=== PATIENT | female | born 1950 | race Caucasian/White ===

== ENCOUNTER 2020-11-10 10:38 | Emergency (ER) | payer MEDICARE, OTHER ==
[~2020-11-10] VITALS: Ht 167.6 cm; Wt 63.5 kg
[2020-11-10] MEDS ORDERED: CLARITIN10 MG PO (10:53)
[2020-11-10] MEDS ORDERED: DULCOLAX STOOL100 M1 PO (10:53)
[2020-11-10] MEDS ORDERED: SENNA8.8 MG/5 M PO (10:53)
[2020-11-10] MEDS ORDERED: PRINIVIL20 M1 PO (10:53)
[2020-11-10] MEDS ORDERED: LIPITOR 20 MG T20 M1 PO (10:53)
[2020-11-10] MEDS ORDERED: FLONASE 0.05%50 MCG NARES (10:54)
[2020-11-10] MEDS ORDERED: CALCIUM500 MG PO (10:54)
[2020-11-10 10:58] LABS: ABSOLUTE BASOPHILS 0.1 thou/uL (0.0-0.2); ABSOLUTE LYMPHOCYTES 1.7 thou/uL (0.8-5.3); ABSOLUTE MONOCYTES 0.6 thou/uL (0.0-1.2); ABSOLUTE NEUTROPHILS 4.9 thou/uL (1.6-8.1); BASOPHILS 0.8 %; EOSINOPHILS 0.5 %; HEMATOCRIT 43.2 % (37.0-47.0); LYMPHOCYTES 23.1 %; MCH 30.1 pg (26.0-34.0); MCHC 34.7 g/dL (28.0-37.0); MCV 86.7 fL (80.0-100.0); MONOCYTES 8.2 %; MPV 9.8 fl. (7.2-11.1); NUCLEATED RBCS 0 /100WBC; PLATELET COUNT* 200 thou/uL (150-400); POLYS 67.4 %; RBC 4.98 mil/uL (4.20-5.00); RDW-CV 13.4 % (10.5-14.5); WBC 7.3 thou/uL (4.0-11.0)
[2020-11-10 11:13] LABS: CALCIUM 9.4 mg/dL (8.5-10.1); CREATININE 0.8 mg/dL (0.6-1.3); POTASSIUM 3.8 mmol/L (3.5-5.1)
[2020-11-10 11:26] LABS: ALBUMIN 3.8 g/dL (3.4-5.0); MAGNESIUM 1.8 mg/dL (1.8-2.4); TOTAL BILIRUBIN 0.7 mg/dL (<0.1-1.0); TOTAL PROTEIN 6.8 g/dL (6.4-8.2)
[2020-11-10] MEDS ORDERED: TOPROL XL25 MG PO (14:34)
[2020-11-10 15:08] VITALS: BP 143/68
--- NOTE | 2020-11-10 15:31 | EKG ---
[place] [address] ELECTROCARDIOGRAM REPORT Name: CORNELL ARTHUR Room: [facility]#: [id number] Admission: 11/10/20 Attend Phys: Discharge: 11/10/20 Date of : 48 Date of Service: 11/10/20 1053 Report #: [id number] THIS REPORT FOR: //name// [facility] ED Test Date: 2020-11-10 Test Time: 10:53:00 Pat Name: CORNELL ARTHUR Department: Room: Gender: F Business Account Executive: FABIANA : 1950 Requested By: Jorge Monson Order Number: [id number] MD: Raghu Albright Measurements Intervals [place] Rate: 107 P: 14 [place]: 141 QRS: -43 QRSD: 106 T: 205 QT: 331 QTc: 442 Interpretive Statements Sinus tachycardia Ventricular bigeminy LVH with secondary repolarization abnormality Inferior infarct, old Anterior Q waves, possibly due to LVH No previous ECG available for comparison Electronically Signed On 11-10-2020 15:31:05 CDT by Raghu Albright [email or web address] <ELECTRONICALLY SIGNED> By: Raghu Albright MD, FACC 11/10/20 1531 1053 1053 Raghu Albright MD, FAC /EPI
--- NOTE | 2020-11-10 15:38 | 2DMMODE ---
[place] [address] 2 D/M-MODE ECHOCARDIOGRAM Name: CORNELL ARTHUR Room: [facility]#: [id number] Admission: 11/10/20 Attend Phys: Discharge: 11/10/20 Date of : 48 Date of Service: 11/10/20 1537 Report #: [id number] THIS REPORT FOR: cc: AJIT GOLDMAN,Raghu Howell MD [facility] ~ APPROVED REPORT Study performed: 11/10/2020 14:04:11 EXAM: Comprehensive 2D, Doppler, and color-flow Echocardiogram Patient Location: In-Patient Room #: er Status: routine BSA: 1.72 HR: 57 bpm BP: 112/48 mmHg Rhythm: NSR Other Information Study Quality: Good Indications Murmur 2D Dimensions IVSd: 11.80 (7-11mm) LVOT Diam: 19.10 (18-24mm) LVDd: 45.70 mm PWd: 10.20 (7-11mm) Ascending Ao: 28.60 (22-36mm) LVDs: 30.45 (25-40mm) Aortic Root: 30.08 mm Volumes Left Atrial Volume (Systole) LA ESV Index: 18.80 mL/m2 Aortic Valve AoV Peak Jacob.: 1.18 m/s AO Peak Gr.: 5.56 mmHg LVOT Max P.74 mmHg AO Mean Gr.: 3.19 mmHg LVOT Mean P.01 mmHg LVOT Max V: 1.20 m/s AO V2 VTI: 25.68 cm LVOT Mean V: 0.81 m/s ALEX (VTI): 2.95 cm2 LVOT V1 VTI: 26.41 [place] [address] 2 D/M-MODE ECHOCARDIOGRAM Name: CORNELL ARTHUR Room: [facility]#: [id number] Admission: 11/10/20 Attend Phys: Discharge: 11/10/20 Date of : 48 Date of Service: 11/10/20 1537 Report #: [id number] Mitral Valve E/A Ratio: 0.73 MV Decel. Time: 229.69 ms MV E Max Jacob.: 0.68 m/s MV PHT: 66.61 ms MVA (PHT): 3.30 cm2 TDI E/Lateral E': 9.71 E/Medial E': 8.50 Medial E' Jacob.: 0.08 m/s Lateral E' Jacob.: 0.07 m/s Pulmonary Valve PV Peak Jacob.: 0.75 m/s PV Peak Gr.: 2.22 mmHg Left Ventricle The left ventricle is normal size. There is normal LV segmental wall motion. There is normal left ventricular wall thickness. Left ventricular systolic function is normal. LVEF is 60-65%. Grade I - abnormal relaxation pattern. Right Ventricle The right ventricle is normal size. The right ventricular systolic function is normal. Atria The left atrium size is normal. The right atrium size is normal. Aortic Valve The aortic valve is normal in structure. No aortic regurgitation is present. There is no aortic valvular stenosis. Mitral Valve The mitral valve is normal in structure. Mild mitral regurgitation. No evidence of mitral valve stenosis. Tricuspid Valve The tricuspid valve is normal in structure. Trace tricuspid regurgitation. Pulmonic Valve The pulmonary valve is normal in structure. There is no pulmonic valvular regurgitation[place] [address] 2 D/M-MODE ECHOCARDIOGRAM Name: SANDHYACORNELL L [id number] Admission: 11/10/20 Attend Phys: Discharge: 11/10/20 Date of : 48 Date of Service: 11/10/20 1537 Report #: [id number] The aortic root is normal in size. IVC is normal in size and collapses >50% with inspiration. Pericardium There is no pericardial effusion. <Conclusion> The left ventricle is normal size. There is normal left ventricular wall thickness. Left ventricular systolic function is normal. LVEF is 60-65%. Grade I - abnormal relaxation pattern. There is normal LV segmental wall motion. Mild mitral regurgitation. Trace tricuspid regurgitation. IVC is normal in size and collapses >50% with inspiration. <ELECTRONICALLY SIGNED> By: Raghu Albright MD, FACC 11/10/20 1537 [id number] Raghu Albright MD, FACC /INF
== END 2020-11-10 15:08 | disposition home or self-care (01) ==
LOC: M.ERS 10:38
PROVIDERS: Family Medicine
DX: R42 Dizziness and giddiness (principal); R00.1 Bradycardia, unspecified; I10 Essential (primary) hypertension; G51.0 Bell's palsy